=== PATIENT | female | born 1955 | race Two or more races ===

== ENCOUNTER 2024-10-07 08:53 | Inpatient (IN) | payer OTHER ==
[~2024-10-07] VITALS: Ht 149.9 cm; Wt 81.6 kg
[~2024-10-07 08:53] MED LIST: AVALIDE 300-12.1 TA1; MEDROLPACK PO
[2024-10-07] MEDS ORDERED: TELMISARTAN-HC1 EAC1 PO (10:45)
[2024-10-07] MEDS ORDERED: NEURONTIN300 MG PO (10:45)
[2024-10-07 12:19] LABS: BASO % 0.2 % (0.1-1.2); EOS # 0.02 (0.04-0.54); EOS % 0.2 % (0.7-7.0); LYMPH # 0.75 (1.18-3.74); LYMPH % 6.4 % (19.3-53.1); MEAN PLATELET VOLUME 10.40 fl (9.4-12.4); MONO # 0.99 (0.24-0.82); MONO % 8.4 % (4.7-12.5); NEUT # 9.96 (1.56-6.13); NEUT % 84.4 % (34.0-71.1); RED CELL DISTRIBUTION WIDTH 14.7 % (11.6-14.4)
[2024-10-07 12:42] LABS: ALT/SGPT 8.0 U/L (12-78); AST/SGOT 35.0 U/L (15-37); BILIRUBIN TOTAL 0.69 mg/dL (0.3-1.2); BUN CREA RATIO 20.0 (7.0-25.0); CREATININE SERUM 1.08 mg/dL (0.55-1.02); GFR 50.3; GLOBULINA 4.2 G/DL (2.4-3.5); GLUCOSE FASTING 132.0 mg/dL (65-100); OSMOLALITY SERUM 283.0 MOSM/KG (275-295)
[2024-10-07 12:48] LABS: COVID-19 AG NEGATIVE (NEGATIVE)
[2024-10-07 13:47] LABS: URINE APPEARANCE Cloudy; URINE BILIRRUBIN Negative (NEGATIVE); URINE BLOOD Small; URINE COLOR Yellow; URINE GLUCOSE Negative (NEGATIVE); URINE KETONE Negative (NEGATIVE); URINE LEUKOCYTE Large; URINE NITRATE Positive; URINE PROTEIN Trace (NEGATIVE); URINE UROBILINOGEN 0.2 E.U./dl
[2024-10-07 13:51] LABS: URINE CAST 1.46 uL (0.0-1.40); URINE EPITHELIAL CELLS 47.6 uL (0.0-38.8); URINE RBC 14.0 uL (0.0-20.8); URINE WBC 1391.0 uL (0.0-23.2)
[2024-10-07 14:04] LABS: URINE BACTERIA > 9821.5 uL (0.0-1933)
[2024-10-07] MEDS ORDERED: CEFTRIAXONE SODIUM 2,000 MG VIAL IV ONE (14:45)
[2024-10-07] MEDS ORDERED: CEFTRIAXONE SODIUM 2,000 MG VIAL ONE ×2 (14:45→21:49)
[2024-10-07] MEDS ORDERED: MORPHINE SULFATE 2 MG/ML CARTRIDGE IV ONE (16:00)
[2024-10-07] MEDS ORDERED: ACETAMINOPHEN 500 MG GEL..CAP PO ONE ×2 (16:20→16:30)
[2024-10-07] MEDS ORDERED: CEFTRIAXONE SODIUM 2,000 MG in 0.9 % SODIUM CHLORIDE 100 ML IV SCH (17:07)
[2024-10-07] MEDS ORDERED: KETOROLAC TROMETHAMINE 15 MG VIAL IU ONE (17:15)
[2024-10-07] MEDS ORDERED: ACETAMINOPHEN 500 MG GEL..CAP PO PRN (17:15)
[2024-10-07] MEDS ORDERED: ENALAPRILAT DIHYDRATE 1.25 MG/ML VIAL IV PRN (17:15)
[2024-10-07] MEDS ORDERED: 0.9 % SODIUM CHLORIDE 1,000 ML IV SCH (17:15)
[2024-10-07] MEDS ORDERED: KETOROLAC TROMETHAMINE 30 MG VIAL IV ONE (17:15)
[2024-10-07] MEDS ORDERED: KETOROLAC TROMETHAMINE 30 MG VIAL ONE (21:49)
[2024-10-08 00:01] LABS: COVID-19 AG NEGATIVE (NEGATIVE)
[2024-10-08] MEDS ORDERED: ACETAMINOPHEN 500 MG GEL..CAP PO ONE (03:04)
[2024-10-08 03:19] VITALS: BP 117/68; O2SAT 100
[2024-10-08 03:34] LABS: INR 1.09
[2024-10-08 06:16] VITALS: BP 101/58; O2SAT 98
[2024-10-08] MEDS ORDERED: ENOXAPARIN SODIUM 40 MG/0.4 ML SYRINGE SUBCUTANEO SCH (09:00)
[2024-10-08] MEDS ORDERED: FAMOTIDINE/PF 20 MG in 0.9 % SODIUM CHLORIDE 8 ML IV PUSH SCH (09:00)
[2024-10-08 10:15] VITALS: BP 94/59; O2SAT 98
[2024-10-08] MEDS ORDERED: LACTOBACILLUS ACIDOPHILUS 1 CAP CAP PO SCH (17:00)
[2024-10-08 17:42] VITALS: BP 122/65; O2SAT 100
[2024-10-08 21:11] LABS: URINE APPEARANCE Cloudy; URINE BILIRRUBIN Negative (NEGATIVE); URINE BLOOD Large; URINE COLOR Yellow; URINE GLUCOSE Negative (NEGATIVE); URINE KETONE Trace (NEGATIVE); URINE LEUKOCYTE Moderate; URINE NITRATE Negative; URINE UROBILINOGEN 1.0 E.U./dl
[2024-10-08 21:14] LABS: URINE BACTERIA 303.5 uL (0.0-1933); URINE CAST 2.05 uL (0.0-1.40); URINE EPITHELIAL CELLS 56.3 uL (0.0-38.8); URINE RBC 172.4 uL (0.0-20.8); URINE WBC 459.6 uL (0.0-23.2)
[2024-10-08 21:36] LABS: URINE PROTEIN 100 (NEGATIVE)
[2024-10-09 00:56] VITALS: BP 96/60; O2SAT 94
[2024-10-09 10:15] VITALS: BP 119/66; O2SAT 97
[2024-10-09 18:25] VITALS: BP 126/75
[2024-10-10 03:14] VITALS: BP 90/59; O2SAT 96
[2024-10-10 09:04] VITALS: BP 103/78; O2SAT 95
== END 2024-10-10 14:39 | disposition home or self-care (01) | DRG 872 ==
LOC: ER 08:53 → SEC-K 17:37 → MEDJ 17:37
PROVIDERS: Emergency Medicine; General Practice; Internal Medicine Infectious Disease; ADMIT Student in an Organized Health Care Education/Training Program; ATTEND Student in an Organized Health Care Education/Training Program
DX: A41.9 Sepsis, unspecified organism (principal); N39.0 Urinary tract infection, site not specified; I10 Essential (primary) hypertension; G51.0 Bell's palsy